=== PATIENT | male | born 1940 | race Caucasian/White ===

== ENCOUNTER → 2019-03-06 | Outpatient (CLI) | payer BC ==
[~2019-03-06] MED LIST: AMLO10TA4 PO; ENAL10TA PO; LOPRESSOR
== END | disposition home or self-care (01) ==
LOC: CFH 13:25
PROVIDERS: ATTEND Family Medicine
DX: R91.1 Solitary pulmonary nodule (principal); J44.9 Chronic obstructive pulmonary disease, unspecified; I25.10 Atherosclerotic heart disease of native coronary artery without angina pectoris; K44.9 Diaphragmatic hernia without obstruction or gangrene; Z87.891 Personal history of nicotine dependence
CPT/HCPCS: 71250

== ENCOUNTER → 2019-04-10 | Outpatient (CLI) | payer BC | END | disposition home or self-care (01) | LOC: PETCFH 09:37 | PROVIDERS: ATTEND Family Medicine | DX: R91.8 Other nonspecific abnormal finding of lung field (principal); I71.4 Abdominal aortic aneurysm, without rupture; M54.6 Pain in thoracic spine; R07.81 Pleurodynia | CPT/HCPCS: 78815; A9552 ==

== ENCOUNTER 2019-05-22 12:36 | Outpatient (CLI) | payer BC | END 2019-05-22 23:59 | disposition home or self-care (01) | LOC: CARD 12:36 | PROVIDERS: ATTEND Surgery | DX: R91.8 Other nonspecific abnormal finding of lung field (principal); G47.33 Obstructive sleep apnea (adult) (pediatric) | CPT/HCPCS: 94060; 94726; 94729 ==

== ENCOUNTER 2019-06-02 09:56 | Inpatient (IN) | payer MEDICARE, BC ==
[~2019-06-02] VITALS: Ht 170.2 cm; Wt 91.7 kg
[2019-06-02] MEDS ORDERED: TAMS-11 PO (10:13)
[2019-06-02] MEDS ORDERED: FINA5TAB4 PO (10:13)
[2019-06-02] MEDS ORDERED: OMEP-110 PO (10:13)
[2019-06-02 10:22] VITALS: BP 155/114
[2019-06-02] MEDS ORDERED: CHLORHEXIDINE 15 ML UDC MM STA (10:27)
[2019-06-02] MEDS ORDERED: LACTATED RINGERS 1,000 ML IV SCH (10:32)
[2019-06-02] MEDS ORDERED: MIDAZOLAM 1 MG/ML, 2ML ONE (10:54)
[2019-06-02] MEDS ORDERED: FENTANYL PF 250 MCG/5ML ONE (10:55)
[2019-06-02] MEDS ORDERED: SUCCINYLCHOLINE 20 MG/ML, 10ML ONE (10:55)
[2019-06-02] MEDS ORDERED: PROPOFOL 10 MG/ML, 20ML ONE (10:56)
[2019-06-02] MEDS ORDERED: GABAPENTIN 300 MG CAPSULE PO STA (11:12)
[2019-06-02] MEDS ORDERED: FAMOTIDINE 20 MG TABLET PO STA (11:12)
[2019-06-02] MEDS ORDERED: ACETAMINOPHEN 500 MG TABLET PO STA (11:12)
[2019-06-02] MEDS ORDERED: BUPIVACAINE/PF-EPI 0.5% 1:200K ONE (11:18)
[2019-06-02] MEDS ORDERED: hydrALAzine 20 MG/ML, 1ML IV PRN ×2 (11:30→14:30)
[2019-06-02] MEDS ORDERED: OXYcodone 5 MG/5 ML ORAL.SOL UDC PO PRN ×2 (11:30→14:30)
[2019-06-02] MEDS ORDERED: LABETALOL 5MG/ML, 20ML IV PRN (11:30)
[2019-06-02] MEDS ORDERED: PROMETHAZINE 25 MG/ML, 1ML IV PRN (11:30)
[2019-06-02] MEDS ORDERED: ONDANSETRON 2MG/ML, 2ML IV PRN (11:30)
[2019-06-02] MEDS ORDERED: MEPERIDINE/PF 25MG/ML,1ML IVPush PRN (11:30)
[2019-06-02] MEDS ORDERED: HYDROmorphone 2 MG/ML, 1ML IVPush PRN (11:30)
[2019-06-02] MEDS ORDERED: FENTANYL PF 100 MCG/2ML IV PRN (11:30)
[2019-06-02] MEDS ORDERED: DEXAMETHASONE 4 MG/ML, 1ML ONE (11:57)
[2019-06-02] MEDS ORDERED: PHENYLEPHRINE 10 MG/ML ONE (13:21)
[2019-06-02] MEDS ORDERED: EPHEDRINE 50 MG/ML, 1ML ONE ×2 (13:21→13:22)
[2019-06-02] MEDS ORDERED: ONDANSETRON 2MG/ML, 2ML ONE (13:27)
[2019-06-02] MEDS ORDERED: SUGAMMADEX 200 MG/2 ML IVPush ONE (13:54)
[2019-06-02] MEDS ORDERED: MORPHINE SULFATE 4 MG/ML, 1ML IVPush PRN (14:30)
[2019-06-02] MEDS ORDERED: ENALAPRILAT 1.25 MG/ML, 2ML IV PRN (14:30)
[2019-06-02] MEDS ORDERED: KETOROLAC 30 MG/1 ML IV PRN (14:30)
[2019-06-02] MEDS ORDERED: SODIUM CHLORIDE 0.9%, 500ML IVBOLUS PRN (14:30)
[2019-06-02] MEDS ORDERED: ONDANSETRON 2MG/ML, 2ML IVPush PRN (14:30)
[2019-06-02] MEDS ORDERED: KETOROLAC 30 MG/1 ML ONE (14:41)
[2019-06-02] MEDS ORDERED: FENTANYL PF 100 MCG/2ML ONE (14:41)
[2019-06-02] MEDS ORDERED: OXYcodone 5 MG/5 ML ORAL.SOL UDC ONE (14:42)
[2019-06-02] MEDS: ACETAMINOPHEN 500 MG TABLET PO SCH ×2 (17:15→23:24)
[2019-06-02] MEDS: POTASSIUM CHLORIDE 20 MEQ in D5%-0.45% NACL 1,000 ML IV SCH (17:15)
[2019-06-02] MEDS: ENOXAPARIN 40 MG/0.4 ML SQ SCH (17:15)
[2019-06-02 20:16] VITALS: BP 139/89
[2019-06-02] MEDS: TAMSULOSIN 0.4 MG CAP.ER.24H PO SCH (21:11)
[2019-06-02] MEDS: FINASTERIDE 5 MG TABLET PO SCH (21:12)
[2019-06-03 00:05] VITALS: BP 129/84
[2019-06-03] MEDS: POTASSIUM CHLORIDE 20 MEQ in D5%-0.45% NACL 1,000 ML IV SCH ×2 (03:32→16:47)
[2019-06-03 04:50] VITALS: BP 132/92
[2019-06-03] MEDS: OMEPRAZOLE 20 MG CAPSULE.DR PO SCH (05:38)
[2019-06-03] MEDS: ACETAMINOPHEN 500 MG TABLET PO SCH ×4 (05:38→23:19)
[2019-06-03 05:49] LABS: ALBUMIN 3.3 g/dL (3.4-5.0); ANION GAP 7 mmol/L (5-15); CALCIUM 9.3 mg/dL (8.5-10.1); CHLORIDE 106 mmol/L (98-107); CREATININE 1.01 mg/dL (0.7-1.3)
[2019-06-03 06:01] LABS: MEAN CORPUSCULAR HEMOGLOBIN 31.2 pg (27.5-34.5); MEAN CORPUSCULAR HGB CONC 32.9 g/dL (33.2-36.2); MEAN CORPUSCULAR VOLUME 94.9 fL (81-97); MEAN PLATELET VOLUME 7.7 fL (7.4-10.4); PLATELET COUNT 297 x10^3/uL (130-400); RED CELL DISTRIBUTION WIDTH 14.6 % (9.4-14.8)
[2019-06-03 06:27] LABS: MD SCAN
[2019-06-03 06:28] LABS: BASOPHILS # (AUTO) 0.01 x10^3/uL (0-0.1); BASOPHILS % (AUTO) 0 % (0-1); EOSINOPHILS # (AUTO) 0.09 x10^3/uL (0-0.4); EOSINOPHILS % (AUTO) 1 % (1-7); LYMPHOCYTES # (AUTO) 1.42 x10^3/uL (1-3.4); LYMPHOCYTES % (AUTO) 9 % (22-44); MONOCYTES # (AUTO) 1.47 x10^3/uL (0.2-0.8); MONOCYTES % (AUTO) 9 % (2-9); NEUTROPHILS # (AUTO) 12.94 x10^3/uL (1.8-6.8); NEUTROPHILS % (AUTO) 81 % (42-75)
[2019-06-03] MEDS: FINASTERIDE 5 MG TABLET PO SCH (07:59)
[2019-06-03] MEDS: TAMSULOSIN 0.4 MG CAP.ER.24H PO SCH (08:02)
[2019-06-03] MEDS ORDERED: TAMSULOSIN 0.4 MG CAP.ER.24H PO SCH (09:00)
[2019-06-03] MEDS ORDERED: FINASTERIDE 5 MG TABLET PO SCH (09:00)
[2019-06-03 14:18] VITALS: BP 121/75
[2019-06-03] MEDS: ENOXAPARIN 40 MG/0.4 ML SQ SCH (16:46)
[2019-06-03 20:01] VITALS: BP 129/85
[2019-06-04 01:57] VITALS: BP 127/73
[2019-06-04] MEDS: ACETAMINOPHEN 500 MG TABLET PO SCH ×2 (05:13→11:49)
[2019-06-04] MEDS: OMEPRAZOLE 20 MG CAPSULE.DR PO SCH (05:13)
[2019-06-04] MEDS: FINASTERIDE 5 MG TABLET PO SCH (07:20)
[2019-06-04] MEDS: TAMSULOSIN 0.4 MG CAP.ER.24H PO SCH (07:20)
[2019-06-04 07:26] VITALS: BP 147/93
[2019-06-04 12:53] VITALS: BP 141/95
[2019-06-04] MEDS ORDERED: ACET-1600 PO (13:47)
[2019-06-04] MEDS ORDERED: IBUP200T49 PO (13:48)
[2019-06-04] MEDS ORDERED: OXYC5TAB2 PO (13:49)
[2019-06-04 14:16] VITALS: BP 127/84
[2019-06-27] MEDS ORDERED: TURM500C4 PO (10:36)
[2019-06-27] MEDS ORDERED: CINN500C2 PO (10:36)
[2019-06-27] MEDS ORDERED: CHOL10003 PO (10:36)
== END 2019-06-04 14:25 | disposition home or self-care (01) | DRG 165 ==
LOC: ORIP 09:56 → EDSTATUS 12:00 → 4NE 15:46
PROVIDERS: ADMIT Surgery; ATTEND Surgery
PROC: 0BTC4ZZ Resection of Right Upper Lung Lobe, Percutaneous Endoscopic Approach (ICD-10-PCS; 2019-06-02)
PROC: 07B74ZX Excision of Thorax Lymphatic, Percutaneous Endoscopic Approach, Diagnostic (ICD-10-PCS; 2019-06-02)
PROC: 0W9940Z Drainage of Right Pleural Cavity with Drainage Device, Percutaneous Endoscopic Approach (ICD-10-PCS; 2019-06-02)
PROC: 0BJ08ZZ Inspection of Tracheobronchial Tree, Via Natural or Artificial Opening Endoscopic (ICD-10-PCS; principal; 2019-06-02 12:00)
DX: C34.11 Malignant neoplasm of upper lobe, right bronchus or lung (principal); R91.8 Other nonspecific abnormal finding of lung field; N40.0 Benign prostatic hyperplasia without lower urinary tract symptoms; Z87.891 Personal history of nicotine dependence; Z88.0 Allergy status to penicillin; Z88.2 Allergy status to sulfonamides
CPT/HCPCS: 36415; 71045; 80048; 82040; 85025; 86850; 86900; 86923; 88305; 88307; 88341; 88342; 93005; C1729; G0378; J1100; J1650; J1885; J2250; J2405; J2704; J3010; J3480; J0330; J2370; J7120

== ENCOUNTER → 2019-06-27 | Outpatient (CLI) | payer BC ==
[~2019-06-27] MED LIST changes: +ACET-1600 PO; +CHOL10003 PO; +CINN500C2 PO; +FINA5TAB4 PO; +IBUP200T49 PO; +OMEP-110 PO; +OXYC5TAB2 PO; +TAMS-11 PO; +TURM500C4 PO
[2019-06-27 11:12] LABS: BASOPHILS # (AUTO) 0.03 x10^3/uL (0-0.1); BASOPHILS % (AUTO) 0 % (0-1); EOSINOPHILS # (AUTO) 0.11 x10^3/uL (0-0.4); EOSINOPHILS % (AUTO) 1 % (1-7); LYMPHOCYTES # (AUTO) 2.09 x10^3/uL (1-3.4); LYMPHOCYTES % (AUTO) 22 % (22-44); MD NO; MEAN CORPUSCULAR HEMOGLOBIN 31.3 pg (27.5-34.5); MEAN CORPUSCULAR HGB CONC 32.9 g/dL (33.2-36.2); MEAN CORPUSCULAR VOLUME 95.2 fL (81-97); MEAN PLATELET VOLUME 7.6 fL (7.4-10.4); MONOCYTES # (AUTO) 0.92 x10^3/uL (0.2-0.8); MONOCYTES % (AUTO) 10 % (2-9); NEUTROPHILS # (AUTO) 6.23 x10^3/uL (1.8-6.8); NEUTROPHILS % (AUTO) 67 % (42-75); PLATELET COUNT 338 x10^3/uL (130-400); RED BLOOD COUNT 5.75 x10^6/uL (4.38-5.82); RED CELL DISTRIBUTION WIDTH 14.3 % (9.4-14.8)
[2019-06-27 11:18] LABS: ALBUMIN 3.7 g/dL (3.4-5.0); ANION GAP 6 mmol/L (5-15); CALCIUM 9.8 mg/dL (8.5-10.1); CHLORIDE 111 mmol/L (98-107)
[2019-06-27 11:21] LABS: ALANINE AMINOTRANSFERASE 26 U/L (12-78); ALKALINE PHOSPHATASE 57 U/L (45-117); BILIRUBIN,TOTAL 0.6 mg/dL (0.2-1.0); CREATININE 1.37 mg/dL (0.7-1.3); TOTAL PROTEIN 7.7 g/dL (6.4-8.2)
== END | disposition home or self-care (01) ==
LOC: STAR 09:55
PROVIDERS: ATTEND Surgery
DX: Z01.818 Encounter for other preprocedural examination (principal); R00.0 Tachycardia, unspecified
CPT/HCPCS: 36415; 80053; 85025; 93005

== ENCOUNTER → 2020-01-07 | Outpatient (CLI) | payer BC ==
[~2020-01-07] MED LIST changes: -ENAL10TA PO; +ENAL10TA9 PO; +OMNIPAQUE 350 MG/ML, 75ML BOTTLE ONE
== END | disposition home or self-care (01) ==
LOC: CFH 13:11
PROVIDERS: ATTEND Thoracic Surgery (Cardiothoracic Vascular Surgery)
DX: R91.8 Other nonspecific abnormal finding of lung field (principal); Z85.118 Personal history of other malignant neoplasm of bronchus and lung
CPT/HCPCS: 71260; 82565; Q9967

== ENCOUNTER → 2020-07-01 | Outpatient (CLI) | payer BC | END | disposition home or self-care (01) | LOC: CFH 09:54 | PROVIDERS: ATTEND Surgery | DX: Z09 Encounter for follow-up examination after completed treatment for conditions other than malignant neoplasm (principal); K44.9 Diaphragmatic hernia without obstruction or gangrene; J84.10 Pulmonary fibrosis, unspecified; Z85.118 Personal history of other malignant neoplasm of bronchus and lung | CPT/HCPCS: 71260; Q9967 ==